=== PATIENT | female | born 2000 | race African-American/Black ===

== ENCOUNTER 2024-08-13 16:00 | Emergency (ER) | payer OTHER, SELFPAY ==
[2024-08-13 16:15] VITALS: BP 134/77; PULSE 90; RESP 19; TEMP 37.1; O2SAT 100
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
== END 2024-08-13 17:30 | disposition home or self-care (01) ==
PROVIDERS: Emergency Provider Nurse Practitioner
DX: G43.909 Migraine, unspecified, not intractable, without status migrainosus (principal); Z76.0 Encounter for issue of repeat prescription
CPT/HCPCS: 99202; G0463